=== PATIENT | female | born 1960 | race Caucasian/White ===

== ENCOUNTER 2017-06-20 12:10 | Emergency (ER) | payer SELFPAY ==
[2017-06-20 12:31] VITALS: BMI 29.9
[2017-06-20 12:35] VITALS: TEMP 98.2
--- NOTE | 2017-06-20 13:14 | ED PDOC ---
Arrival/HPI - General Historian: Patient - History of Present Illness Time/Duration: Prior to Arrival Symptom Onset: Sudden Symptom Course: Improving Context: Home - General Chief Complaint: Finger,Hand,&Wrist Time Seen by Provider: 06/20/17 12:57 - History of Present Illness Narrative History of Present Illness (Text): 06/20/17 13:00 Perez Gandhi is a 57 year old female, whose past medical history includes diabetes, presents to the Emergency department accompanied by her daughter, complaining of bleeding on her 4th digit of her left hand. Daughter reports the patient has had this bump that resembles a wart on her finger for the past three months, but in the last three days it has been bleeding intermittently and this morning prior to arrival the bleeding began again and wouldnt stop. Patient denies any fever, cough, vomiting, abdominal pain, headache, or any other complaints. (Lexus Olmedo) Past Medical History - Provider Review Nursing Documentation Reviewed: Yes - Travel History Have you recently traveled outside [place] w/in the past 3 mons?: No - Infectious Disease Hx of Infectious Diseases: None - Tetanus Immunization Tetanus Immunization: Unknown - Endocrine/Metabolic Hx Diabetes Mellitus Type 2: Yes - Psychiatric Hx Substance Use: No - Surgical History Hx Hysterectomy: Yes - Anesthesia Hx Anesthesia: Yes Hx Anesthesia Reactions: No Hx Malignant Hyperthermia: No Family/Social History - Physician Review Nursing Documentation Reviewed: Yes Family/Social History: Unknown Family HX Smoking Status: Never Smoked Hx Alcohol Use: No Hx Substance Use: No Allergies/Home Meds Allergies/Adverse Reactions: Allergies No Known Allergies Allergy (Verified 06/20/17 12:31) Home Medications: Home Meds Medication Instructions Recorded Confirmed Home Med [Home Med] 1 tab PO DAILY 06/20/17 06/20/17 Multivitamin/Iron/Folic Acid 1 tab PO DAILY 06/20/17 06/20/17 [Centrum Adults Tablet] Review of Systems - Review of Systems Constitutional: absent: Fatigue, Fevers Respiratory: absent: SOB, Cough Cardiovascular: absent: Chest Pain, Palpitations Gastrointestinal: absent: Abdominal Pain, Nausea, Vomiting Musculoskeletal: absent: Arthralgias Skin: Skin Lesions (4th digit left hand) Neurological: absent: Headache, Dizziness Physical Exam Vital Signs Reviewed: Yes Temperature: Afebrile Blood Pressure: Normal Pulse: Regular Respiratory Rate: Normal Appearance: Positive for: Well-Appearing, Non-Toxic, Comfortable Pain Distress: None Mental Status: Positive for: Alert and Oriented X 3 - Systems Exam Head: Present: Atraumatic Conjunctiva: Present: Normal Mouth: Present: Moist Mucous Membranes Neck: Present: Normal Range of Motion Respiratory/Chest: Present: Clear to Auscultation, Good Air Exchange. No: Respiratory Distress, Accessory Muscle Use Cardiovascular: Present: Regular Rate and Rhythm, Normal S1, S2. No: Murmurs Upper Extremity: Present: Normal ROM, NORMAL PULSES, Neurovascularly Intact, Capillary Refill < 2s, Other (Left 4th finger; there is a small pinpoint area of bleeding dorsal aspect of finger over the PIP joint. (left 4th digit)). No: Tenderness, Swelling, Erythema, Deformity Skin: Present: Warm, Dry, Normal Color Psychiatric: Present: Alert, Oriented x 3 Vital Signs Temp Pulse Resp BP Pulse Ox 06/20/17 12:34 98.2 F 93 H 18 137/79 96 Medical Decision Making ED Course and Treatment: 06/20/17 I was available for consultation during PA evaluation. The chart was reviewed by me, and I agree with disposition. The documented history was done by the physician reclamation kettle tender. The documented physical exam was done by the physician reclamation kettle tender. The documented procedures were done by the physician reclamation kettle tender. ( Aj Godinez) 06/20/17 Impression: 57 year old female with small pinpoint area of bleeding dorsal aspect of 4th finger over the PIP joint. A wart-like growth without surrounding erythema or tenderness. full rom of finger. Plan: -- Reassess and disposition Progress Notes: finger was soaked in betadine solution. The Gelfoam was placed directly on the wound, bleeding controlled. On reevaluation the patient is in no acute distress. I have discussed the results and plan with the patient, who expresses understanding. Patient given the opportunity to ask question, all questions were answered and there is agreement with the plan to discharge the patient home and was given instructions to follow up with corporate analyst. Patient is stable for discharge. impression; skin lesion follow up with the primary care physician within the next 2 days follow up with the corporate analyst within the next 2 days return if signs of infection develop; high fevers, increasing pain, redness, swelling or purulent discharge develop. (Lexus Olmedo) - Medication Orders Current Medication Orders: Discontinued Medications Gelatin (Gelfoam Size 12-7) 1 spg MM STAT STA Stop: 06/20/17 13:29 Last Admin: 06/20/17 13:51 Dose: 1 spg - Scribe Statement The provider has reviewed the documentation as recorded by the Scribe - Scribe Statement 06/20/2017 Andria Resendez Provider Scribe Attestation: All medical record entries made by the Scribe were at my direction and personally dictated by me. I have reviewed the chart and agree that the record accurately reflects my personal performance of the history, physical exam, medical decision making, and the department course for this patient. I have also personally directed, reviewed, and agree with the discharge instructions and disposition. (Lexus Olmedo) Disposition/Present on Arrival - Present on Arrival Any Indicators Present on Arrival: No History of DVT/PE: No History of Uncontrolled Diabetes: No Urinary Catheter: No History of Decub. Ulcer: No History Surgical Site Infection Following: None - Disposition Have Diagnosis and Disposition been Completed?: Yes Disposition Time: 13:57 Patient Plan: Discharge - Disposition Diagnosis: Skin lesion Disposition: HOME/ ROUTINE Condition: GOOD Additional Instructions: follow up with the primary care physician within the next 2 days follow up with the corporate analyst within the next 2 days return if signs of infection develop; high fevers, increasing pain, redness, swelling or purulent discharge develop. Referrals: [facility] [place] - Follow up with primary [facility] [place] - Follow up with primary Lora Will MD [Staff Provider] - Follow up with primary Forms: [employer] (Japanese)
[2017-06-20] MEDS ORDERED: Absorbable Gelatin Sponge Size 12-7 MM STA (13:28)
[2017-06-20 14:07] VITALS: BP 132/80; PULSE 85; RESP 17; O2SAT 99
== END 2017-06-20 14:07 | disposition home or self-care (01) ==
LOC: ED 12:10
DX: L98.9 Disorder of the skin and subcutaneous tissue, unspecified (principal); E11.9 Type 2 diabetes mellitus without complications

== ENCOUNTER 2017-12-06 17:39 | Emergency (ER) | payer OTHER ==
[2017-12-06 17:40] VITALS: BMI 29.9
[2017-12-06 17:52] VITALS: TEMP 98.7
--- NOTE | 2017-12-06 18:01 | ED PDOC ---
Arrival/HPI - General Chief Complaint: Flu-like Symptoms Time Seen by Provider: 12/06/17 17:55 Historian: Patient - History of Present Illness Narrative History of Present Illness (Text): 12/06/17 17:55 57 y/o female, pmh including chronic anemia with last hgb unknown, nkda, c/o cough/fever/fatigue for the past 3 days with no recent traveling. Pt. stated that she has tmax 101F, no urinary symptoms, no abdominal pain, admits coughing with runny nose and feeling generalized bodyache, no rash, no dizziness, no other medical or psychological complaints. Past Medical History - Provider Review Nursing Documentation Reviewed: Yes - Infectious Disease Hx of Infectious Diseases: None - Tetanus Immunization Tetanus Immunization: Unknown - Endocrine/Metabolic Hx Diabetes Mellitus Type 2: Yes - Psychiatric Hx Substance Use: No - Surgical History Hx Hysterectomy: Yes - Anesthesia Hx Anesthesia: Yes Hx Anesthesia Reactions: No Hx Malignant Hyperthermia: No Family/Social History - Physician Review Nursing Documentation Reviewed: Yes Family/Social History: Unknown Family HX Smoking Status: Never Smoked Hx Alcohol Use: No Hx Substance Use: No Allergies/Home Meds Allergies/Adverse Reactions: Allergies No Known Allergies Allergy (Verified 12/06/17 17:53) Review of Systems - Physician Review All systems were reviewed & negative as marked: Yes - Review of Systems Constitutional: Fatigue, Fevers Eyes: absent: Vision Changes ENT: Rhinorrhea. absent: Hearing Changes Respiratory: Cough, Sputum. absent: SOB, Wheezing Cardiovascular: absent: Chest Pain Gastrointestinal: absent: Abdominal Pain, Diarrhea, Nausea, Vomiting Musculoskeletal: absent: Arthralgias, Myalgias Skin: absent: Rash, Pruritis Psychiatric: absent: Anxiety, Depression Physical Exam Vital Signs Reviewed: Yes Vital Signs Temp Pulse Resp BP Pulse Ox 12/06/17 19:42 99 H 18 125/75 99 12/06/17 18:50 110 H 18 135/72 97 12/06/17 17:52 98.7 F 101 H 17 115/79 96 Temperature: Afebrile Blood Pressure: Normal Pulse: Tachycardic Respiratory Rate: Normal Appearance: Positive for: Well-Appearing, Non-Toxic, Comfortable Pain Distress: Mild Mental Status: Positive for: Alert and Oriented X 3 - Systems Exam Head: Present: Atraumatic, Normocephalic Pupils: Present: PERRL Extroacular Muscles: Present: EOMI Conjunctiva: Present: Normal Ears: Present: NORMAL TM, Normal Canal. No: Erythema Mouth: Present: Moist Mucous Membranes Nose (External): Present: Atraumatic. No: Abrasion, Contusion, Laceration, Lesions Nose (Internal): Present: Normal Inspection, No Active Bleeding. No: Rhinorrhea Neck: Present: Normal Range of Motion Respiratory/Chest: Present: Clear to Auscultation, Good Air Exchange. No: Respiratory Distress, Accessory Muscle Use, Wheezes, Decreased Breath Sounds, Rales, Retracting, Rhonchi, Tachypneic, Tender to Palpation Cardiovascular: Present: Regular Rate and Rhythm, Normal S1, S2, Other (no pedal edema). No: Murmurs Abdomen: Present: Normal Bowel Sounds. No: Tenderness, Distention, Peritoneal Signs Back: Present: Normal Inspection Upper Extremity: Present: Normal Inspection. No: Cyanosis, Edema Lower Extremity: Present: Normal Inspection. No: Edema Neurological: Present: GCS=15, CN II-XII Intact, Speech Normal, Motor Func Grossly Intact, Gait Normal, Memory Normal Skin: Present: Warm, Dry, Normal Color. No: Rashes Psychiatric: Present: Alert, Oriented x 3, Normal Insight, Normal Concentration Medical Decision Making ED Course and Treatment: 12/06/17 18:02 -chest xray -motrin -observe and reassess 12/06/17 18:27 -Labs ordered as the patient is tachycardia borderline 102. -Levaquin and tamiflu ordered. -I explained to the patient and patient's daughter about the side effects of the levaquin including prolong QT and possible achilles tendon rupture so to avoid gym/exercise, patient and the daughter verbally expressed understanding and willing to take the risk. 12/06/17 19:39 -AMA AMA ER The patient refuses to stay in the Emergency Room (ER) to continue the care and wishes to leave the emergency department against my medical advice. Patient was told that staying in the ER is necessary and a full explanation of the reasons why was given, and understood by the patient with alert and oriented x4. The risk of leaving were explained in laymans term and including but not limited to GI bleed, pneumonia, empyema, abscess, pleural effusion, respiratory distress , cardiac arrest, syncope, pain, worsening of condition, permanent disability and from an undiagnosed or untreated condition. The patient accepts these risks, able to repeat back and explain the risks and benefits, and is in my judgment is competent and capable of understanding the clinical situation and explanation of the risk of leaving. Patient was given the opportunity to ask questions and change mind. The patient was instructed regarding the best care for the present symptoms, and to follow up as soon as possible with the primary care doctor including specialist or return to the emergency department at any time for continuing care. -Mongolian Juke Box Serv[employer] Kelly Barkley [id number] used and for the against medical advice translation. -Labs are significant for hgb 8.8 with no previous comparison. -Pt. refused rectal guaiac exam and stated that she has no bloody or black color stool, reason why is explained as well. -Vitally is tachycardic around 102, suggest to order more test and stay in the hospital for admission but the patient refused.. Pt. is eating and drinking well. -Chest xray show there is infiltrate, levaquin and tamiflu ordered. -YOU SIGNS OUT AGAINST MEDICAL ADVICE. YOU ARE GIVEN THE levaquin, tamiflu, tessalon, motrin, iron tablet, bed rest, follow up with your own pmd within 2 days, return to the ER for any new or worsening signs or symptoms. - Lab Interpretations Lab Results: 12/06/17 18:50 12/06/17 18:50 Lab Results 12/06/17 18:50: WBC 5.7, RBC 4.59, Hgb 8.8 L, Hct 28.2 L, MCV 61.4 L, MCH 19.2 L , MCHC 31.2, RDW 16.0 H, Plt Count 215, Gran % 52.5, Lymph % (Auto) 34.3, [place] % (Auto) 11.9 H, Eos % (Auto) 0.9 L, Baso % (Auto) 0.4, Gran # 2.97, Lymph # ( Auto) 1.9, [place] # (Auto) 0.7 H, Eos # (Auto) 0.1, Baso # (Auto) 0.02 12/06/17 18:50: Sodium 137, Potassium 4.4, Chloride 100, Carbon Dioxide 25, Anion Gap 17, BUN 13, Creatinine 0.6 L, Est GFR ( Amer) > 60, Est GFR ( Non-Af Amer) > 60, Random Glucose 150 H, Calcium 10.1, Total Bilirubin 0.5, AST 64 H, ALT 63 H, Alkaline Phosphatase 69, Total Protein 8.3, Albumin 4.4, Globulin 3.9, Albumin/Globulin Ratio 1.1 - RAD Interpretation Radiology Orders: 12/06/17 18:01 CHEST TWO VIEWS (PA/LAT) [RAD] Stat Cytotechnologist: Radiologist - Medication Orders Current Medication Orders: Discontinued Medications Sodium Chloride (Sodium Chloride 0.9%) 1,000 mls @ 999 mls/hr IV .Q1H1M STA Stop: 12/06/17 19:34 Last Admin: 12/06/17 18:54 Dose: 999 mls/hr eMAR Start Stop Document 12/06/17 18:54 SRE (Rec: 12/06/17 18:55 SRE [id number]) Intravenous Solution Start Date 12/06/17 Start Time 18:55 End Date 12/06/17 End time 19:55 Total Infusion Time 60 Ibuprofen (Motrin Tab) 600 mg PO STAT STA Stop: 12/06/17 18:02 Last Admin: 12/06/17 18:10 Dose: 600 mg MAR Pain/Vitals Document 12/06/17 18:10 SRE (Rec: 12/06/17 18:10 SRE [email or web address]) Pain Reassessment Is This A Pain ReAssessment? Yes Levofloxacin (Levaquin) 750 mg PO STAT STA Stop: 12/06/17 18:25 Last Admin: 12/06/17 18:58 Dose: 750 mg Oseltamivir Phosphate (Tamiflu Cap) 75 mg PO STAT STA PRN Reason: Protocol Stop: 12/06/17 18:25 Last Admin: 12/06/17 18:57 Dose: 75 mg - PA / DIRECTOR TELEVISION NEWS / Resident Statement /DO has reviewed & agrees with the documentation as recorded. Disposition/Present on Arrival - Present on Arrival Any Indicators Present on Arrival: No History of DVT/PE: No History of Uncontrolled Diabetes: No Urinary Catheter: No History of Decub. Ulcer: No History Surgical Site Infection Following: None - Disposition Have Diagnosis and Disposition been Completed?: Yes Diagnosis: Flu-like symptoms, Pneumonia, Tachycardia, Anemia, Non-compliant patient Disposition: AGAINST MEDICAL ADVICE Disposition Time: 18:03 Condition: STABLE Additional Instructions: -YOU SIGNS OUT AGAINST MEDICAL ADVICE. YOU ARE GIVEN THE levaquin, tamiflu, tessalon, iron tablet, motrin, bed rest, follow up with your own pmd within 2 days, return to the ER for any new or worsening signs or symptoms. Prescriptions: Benzonatate [Tessalon Perles] 100 mg PO TID PRN #30 sgl PRN Reason: Other Ferrous Sulfate 325 mg PO DAILY #30 tablet Ibuprofen [Motrin] 600 mg PO QID PRN #30 tab PRN Reason: Other Levofloxacin [Levaquin] 750 mg PO DAILY #5 tablet Oseltamivir Phosphate [Tamiflu] 75 mg PO BID #10 capsule Referrals: [facility] [place] [Outside] - Follow up with primary testbirds Edmundo Reyomaira, [Non-Staff] - Follow up with primary Aldo Linder MD [Staff Provider] - Follow up with primary Wesley Cruz MD [Staff Provider] - Follow up with primary Forms: [facility] (Kazakh), WORK NOTE
[2017-12-06] MEDS ORDERED: levoFLOXacin 750 MG TAB PO STA (18:24)
[2017-12-06] MEDS ORDERED: Sodium Chloride 0.9% 1,000 ML IV STA (18:34)
[2017-12-06 19:02] VITALS: RESP 18
[2017-12-06 19:14] LABS: BASO # 0.02 K/mm3 (0.0-2.0); BASO % 0.4 % (0.0-3.0); EOS # 0.1 (0.0-0.7); EOS % 0.9 % (1.5-5.0); GRAN # 2.97 (1.4-6.5); GRAN % 52.5 % (50.0-68.0); HEMOGLOBIN 8.8 g/dL (12.0-16.0); LYMPH # 1.9 (1.2-3.4); LYMPH % 34.3 % (22.0-35.0); MEAN CELL VOLUME 61.4 fl (80.0-105.0); MEAN CORPUSCULAR HEMOGLOBIN 19.2 pg (25.0-35.0); MEAN CORPUSCULAR HGB CONC 31.2 g/dl (31.0-37.0); MONO # 0.7 (0.1-0.6); MONO % 11.9 % (1.0-6.0); PLATELET COUNT 215 10^3/uL (120.0-450.0); RBC 4.59 10^6/uL (3.5-6.1); WHITE BLOOD COUNT 5.7 10^3/ul (4.5-11.0)
[2017-12-06 19:15] LABS: ALB/GLOB RATIO 1.1 (1.1-1.8); ALBUMIN 4.4 g/dL (3.0-4.8); ALT/SGPT 63 U/L (7-56); AST/SGOT 64 U/L (14-36); BLOOD UREA NITROGEN 13 mg/dL (7-21); CALCIUM 10.1 mg/dL (8.4-10.5); GFR AFRICAN-AMERICAN > 60; GFR NON-AFRICAN AMERICAN > 60
[2017-12-06 19:43] VITALS: BP 125/75; PULSE 99; O2SAT 99
--- NOTE | 2017-12-07 08:03 | RAD ---
HISTORY: cough COMPARISON: No prior. TECHNIQUE: Chest PA and lateral FINDINGS: LUNGS: Inspiratory volume appears somewhat limited. Limited bilateral basilar infiltrates are in question versus crowding of the bronchovascular markings combine with left basilar linear atelectasis. PLEURA: No significant pleural effusion identified. No pneumothorax apparent. CARDIOVASCULAR: Borderline cardiomegaly. No pulmonary vascular derangement identified. OSSEOUS STRUCTURES: No significant abnormalities. VISUALIZED UPPER ABDOMEN: Normal. OTHER FINDINGS: None. IMPRESSION: Limited bilateral infiltrates are suspected, right greater than left, though an element of crowding of the bronchovascular markings is in question. Limited inspiratory volume.
== END 2017-12-06 20:07 | disposition left against medical advice (07) ==
LOC: ED 17:39
DX: J18.9 Pneumonia, unspecified organism (principal); D64.9 Anemia, unspecified; R00.0 Tachycardia, unspecified; J11.1 Influenza due to unidentified influenza virus with other respiratory manifestations; Z91.19 Patient's noncompliance with other medical treatment and regimen; E11.9 Type 2 diabetes mellitus without complications
CPT/HCPCS: 71046; 80053; 85025; 96360; 99285; J7040

== ENCOUNTER 2018-05-18 17:03 | Emergency (ER) | payer OTHER ==
[2018-05-18 17:27] VITALS: TEMP 98.4; BMI 27.6
--- NOTE | 2018-05-18 17:49 | ED PDOC ---
Arrival/HPI - General Chief Complaint: Medical Clearance Time Seen by Provider: 05/18/18 17:22 Historian: Patient, Family (daughter) - History of Present Illness Narrative History of Present Illness (Text): 05/18/18 17:46 This 58 yo female came with her daughter to have out-patient blood test done in ED. Daughter stated patient saw her doctor on May 11, and she was told to get blood test in out-patient laboratory. Daughter thought the quickest way to do out-patient blood test was to get them done in ED. Patient stated feels well on her normal stated of health. Patient denies any somatic complains. Time/Duration: Other (see hpi) Context: Home Past Medical History - Provider Review Nursing Documentation Reviewed: Yes - Infectious Disease Hx of Infectious Diseases: None - Tetanus Immunization Tetanus Immunization: Unknown - Cardiac Hx Cardiac Disorders: No - Pulmonary Hx Respiratory Disorders: No - Neurological Hx Neurological Disorder: No - HEENT Hx HEENT Disorder: No - Renal Hx Renal Disorder: No - Endocrine/Metabolic Hx Endocrine Disorders: Yes Hx Diabetes Mellitus Type 2: Yes - Hematological/Oncological Hx Blood Disorders: No - Integumentary Hx Dermatological Disorder: No - Musculoskeletal/Rheumatological Hx Musculoskeletal Disorders: No - Gastrointestinal Hx Gastrointestinal Disorders: No - Genitourinary/Gynecological Hx Genitourinary Disorders: No - Psychiatric Hx Psychophysiologic Disorder: No Hx Substance Use: No - Surgical History Hx Hysterectomy: Yes - Anesthesia Hx Anesthesia: Yes Hx Anesthesia Reactions: No Hx Malignant Hyperthermia: No Family/Social History - Physician Review Nursing Documentation Reviewed: Yes Family/Social History: Other (noncontributory) Smoking Status: Never Smoked Hx Alcohol Use: No Hx Substance Use: No Allergies/Home Meds Allergies/Adverse Reactions: Allergies No Known Allergies Allergy (Verified 05/18/18 17:27) Home Medications: Home Meds Medication Instructions Recorded Confirmed No Known Home Med 05/18/18 05/18/18 Review of Systems - Review of Systems Constitutional: Normal. absent: Fatigue, Weight Change, Fevers, Night Sweats Eyes: Normal. absent: Vision Changes ENT: Normal Respiratory: Normal. absent: SOB, Cough Cardiovascular: Normal. absent: Chest Pain Gastrointestinal: Normal. absent: Abdominal Pain, Nausea, Vomiting Genitourinary Female: Normal. absent: Dysuria, Frequency, Hematuria Musculoskeletal: Normal. absent: Back Pain, Neck Pain Skin: Normal. absent: Rash Neurological: Normal. absent: Headache, Dizziness, Focal Weakness, Gait Changes , Speech Changes, Facial Droop, Disequilibrium, Seizure Endocrine: Normal. absent: Diaphoresis, Polyuria, Polydipsia Hemo/Lymphatic: Normal Psychiatric: Normal. absent: Suicidal Ideation Physical Exam Vital Signs Temp Pulse Resp BP Pulse Ox 05/18/18 18:03 98.4 F 88 16 122/76 98 05/18/18 17:55 88 16 122/76 98 05/18/18 17:26 98.4 F 102 H 18 150/100 H 100 Temperature: Afebrile Blood Pressure: Normal Pulse: Regular Respiratory Rate: Normal Appearance: Positive for: Well-Appearing, Non-Toxic, Comfortable Pain Distress: None Mental Status: Positive for: Alert and Oriented X 3 - Systems Exam Head: Present: Atraumatic, Normocephalic Pupils: Present: PERRL Extroacular Muscles: Present: EOMI Conjunctiva: Present: Normal Mouth: Present: Moist Mucous Membranes Neck: Present: Normal Range of Motion Respiratory/Chest: Present: Clear to Auscultation, Good Air Exchange. No: Respiratory Distress, Accessory Muscle Use Cardiovascular: Present: Regular Rate and Rhythm, Normal S1, S2. No: Murmurs Abdomen: No: Tenderness, Distention, Peritoneal Signs Back: Present: Normal Inspection Upper Extremity: Present: Normal Inspection. No: Cyanosis, Edema Lower Extremity: Present: Normal Inspection. No: Edema Neurological: Present: GCS=15, CN II-XII Intact, Speech Normal Skin: Present: Warm, Dry, Normal Color. No: Rashes Psychiatric: Present: Alert, Oriented x 3, Normal Insight, Normal Concentration Medical Decision Making ED Course and Treatment: 05/18/18 17:49 Re-evaluation. Patient feels well. Discussed results and plan with patient and daughter who expresses understanding. All questions answered and there is agreement with the plan to discharge home with instructions. Patient stable for discharge. Return if symptoms persist or worsen. Patient remained asymptomatic during the course of ED visit. Patient VS has improved. Patient felt mild nervous when she came to ED waiting room, but she feels better. Patient and daughter were recommended to f/u with ou-patient laboratory to have her routine blood test done. Daughter agreed. Re-evaluation Time: 17:49 Reassessment Condition: Re-examined, Unchanged Disposition/Present on Arrival - Present on Arrival Any Indicators Present on Arrival: No History of DVT/PE: No History of Uncontrolled Diabetes: No Urinary Catheter: No History of Decub. Ulcer: No History Surgical Site Infection Following: None - Disposition Have Diagnosis and Disposition been Completed?: Yes Diagnosis: Encounter for well adult exam without abnormal findings Disposition: HOME/ ROUTINE Disposition Time: 17:54 Patient Plan: Discharge Condition: GOOD Discharge Instructions (ExitCare): Low Salt Diet Additional Instructions: Call private doctor for follow up visit in 1-2 days. Make sure to get routine blood test done at an out-patient laboratory. Return to emergency if symptoms develop Referrals: [facility] [Outside] - Follow up with primary Malgorzata Acosta MD [Staff Provider] - Follow up with primary Forms: [facility] (Icelandic)
[2018-05-18 17:58] VITALS: BP 122/76; PULSE 88; RESP 16; O2SAT 98
== END 2018-05-18 18:02 | disposition home or self-care (01) ==
LOC: ED 17:03
DX: Z04.8 Encounter for examination and observation for other specified reasons (principal)